=== PATIENT | male | born 1965 | race Caucasian/White ===

== ENCOUNTER 2023-01-17 10:14 | Emergency (ER) | payer OTHER ==
[2023-01-17 10:30] VITALS: BP 156/99; PULSE 88; RESP 18; TEMP 98.7; BMI 37.1
== END 2023-01-17 12:36 | disposition home or self-care (01) ==
LOC: JERFT 10:14
DX: M25.561 Pain in right knee (principal); L23.7 Allergic contact dermatitis due to plants, except food; M70.51 Other bursitis of knee, right knee; X50.0XXA Overexertion from strenuous movement or load, initial encounter; Y93.01 Activity, walking, marching and hiking; Y92.61 Building [any] under construction as the place of occurrence of the external cause
CPT/HCPCS: 73562-TC-RT-FY; 99283-25